=== PATIENT | male | born 1995 | race Two or more races ===

== ENCOUNTER 2022-05-23 12:41 | Emergency (ER) | payer MEDICAID, OTHER ==
[~2022-05-23] VITALS: Ht 177.8 cm; Wt 55.3 kg
[2022-05-23] MEDS ORDERED: cefTRIAXone SOD 1,000 MG VL IM ONE (16:00)
[2022-05-23] MEDS ORDERED: ACET-1158 PO (16:05)
[2022-05-23] MEDS ORDERED: SULF800T7 PO (16:05)
[2022-05-23 16:18] VITALS: BP 139/87
== END 2022-05-23 16:19 | disposition home or self-care (01) ==
LOC: ER 12:41
DX: L03.317 Cellulitis of buttock (principal); F15.10 Other stimulant abuse, uncomplicated
CPT/HCPCS: 96372; 99283; J0696